=== PATIENT | male | born 1970 | race Hispanic/Latino ===

== ENCOUNTER 2016-12-24 05:17 | Emergency (ER) | payer SELFPAY | END 2016-12-24 05:18 | disposition left against medical advice (07) | LOC: ED 05:17 | DX: M79.89 Other specified soft tissue disorders (principal); Z53.21 Procedure and treatment not carried out due to patient leaving prior to being seen by health care provider ==

== ENCOUNTER 2018-02-06 04:54 | Emergency (ER) | payer SELFPAY | END 2018-02-06 05:30 | disposition left against medical advice (07) | LOC: ED 04:54 | DX: F10.129 Alcohol abuse with intoxication, unspecified (principal); Z53.21 Procedure and treatment not carried out due to patient leaving prior to being seen by health care provider ==

== ENCOUNTER 2018-02-06 08:40 | Emergency (ER) | payer OTHER ==
[2018-02-06 09:14] VITALS: BP 113/80
[2018-02-06] MEDS ORDERED: ATROVENT IH ONE (09:40)
[2018-02-06] MEDS ORDERED: PROVENTIL IH ONE (09:40)
[2018-02-06] MEDS ORDERED: SOLU-Medrol IV ONE (09:41)
--- NOTE | 2018-02-06 09:42 | XRay Report ---
ROUTINE CHEST, TWO VIEWS: HISTORY: shortness of breath. The trachea, heart, mediastinal contour, lung franks and bony thorax are unremarkable. IMPRESSION: Unremarkable chest x-ray.
--- NOTE | 2018-02-06 09:44 | Emergency Department Report ---
Chief Complaint: Dyspnea/Respdistress Stated Complaint: SOB/DIZZY Time Seen by Provider: 02/06/18 09:33 - HPI History of Present Illness: 47-year-old male presents via EMS from home with complaint of shortness of breath, coughing and wheezing. This been going on for him for " the past year" the patient says that he came in today because "I couldn't breathe." He denies any chest pain, fever, nausea, vomiting, back pain. He has a past medical history of asthma and is a cigarette smoker. He has not taken anything for his symptoms. Presentation. He does not have a primary care physician. No recent travel or sick contacts at home. No lower extremity swelling. - ROS Review of Systems: Positive for shortness of breath, coughing, wheezing Negative for chest pain, back pain, nausea, vomiting, fever - Exam Vital Signs: Vital Signs 02/06/18 09:10 Temperature 97.5 F L Pulse Rate 64 Respiratory 20 Rate Blood Pressure 113/80 O2 Sat by Pulse 97 Oximetry Physical Exam: Patient appears fatigued but is arousable. Heart sounds are normal to auscultation. Mild to moderate wheezing throughout the chest. No cough heard during examination thus far. No lower extremity swelling. MSE screening note: Focused history and physical exam performed. Due to findings the following was ordered: We have ordered a CBC, BMP, troponin, blood gas, chest x-ray and EKG. The EKG has been done and does not show any ST elevation HI or dysrhythmia. I have ordered breathing treatments for the patient, an IV to be placed and the patient will receive Solu-Medrol. ED Disposition for MSE Condition: Stable Referrals: PRIMARY CARE [Primary Care Provider] - 3-5 Days
[2018-02-06 09:59] LABS: Basophils # (Auto) 0.1 K/mm3 (0.0-0.1); Basophils % (Auto) 0.9 % (0.0-1.8); Eosinophils # (Auto) 0.3 K/mm3 (0.0-0.4); Eosinophils % (Auto) 3.6 % (0.0-4.3); Hematocrit 42.4 % (35.5-45.6); Hemoglobin 14.2 gm/dl (11.8-15.2); Lymphocytes # (Auto) 2.1 K/mm3 (1.2-5.4); Lymphocytes % (Auto) 27.1 % (13.4-35.0); Mean Corpuscular HGB Conc 34 % (32-34); Mean Corpuscular Hemoglobin 30 pg (28-32); Mean Corpuscular Volume 90 fl (84-94); Monocytes # (Auto) 0.6 K/mm3 (0.0-0.8); Monocytes % (Auto) 7.6 % (0.0-7.3); Platelet Count 346 K/mm3 (140-440); Red Blood Count 4.72 M/mm3 (3.65-5.03); Red Cell Distribution Width 15.3 % (13.2-15.2)
[2018-02-06 10:31] LABS: BUN/Creatinine Ratio 13; Blood Urea Nitrogen 14 mg/dL (9-20); Calcium 9.3 mg/dL (8.4-10.2); Hemolysis Index 7
--- NOTE | 2018-02-06 12:01 | Emergency Department Report ---
ED Asthma HPI - General Chief Complaint: Dyspnea/Respdistress Stated Complaint: SOB/DIZZY Time Seen by Provider: 02/06/18 09:33 Source: patient Mode of arrival: Ambulatory Limitations: No Limitations - History of Present Illness Initial Comments: This is a 47-year-old male nontoxic, well nourished in appearance, no acute signs of distress presents to the ED with c/o of shortness of breathe, cough, and wheezing x1 day. Patient stated she is out of her albuterol inhaler 1 month. Patient stated cough is nonproductive and dry. Patient denies any sick contact. Patient denies any recent travels, long car, recent hospital stays. Patient denies any calf pain or calf tenderness. Patient denies any chest pain , short of breath, fever, chills, nausea, vomiting, hemoptysis, numbness, tingling, headache or stiff neck. Stated allergies to PCN. Complaint: shortness of breath, wheezing, other (cough) -: days(s) (1) Asthma History: childhood onset Severity: mild Context: none known Associated Symptoms: dry cough - Related Data Current Asthma Therapy: none Previous Rx's Medication Instructions Recorded Last Taken Type ALBUTEROL Inhaler(NF) [VENTOLIN 2 puff IH Q4-6H PRN #1 inha 02/06/18 Unknown Rx Inhaler(NF)] Prednisone [predniSONE 10 mg 10 mg PO .TAPER #1 tab.ds.pk 02/06/18 Unknown Rx (6-Day Pack, 21 Tabs)] Allergies Allergy/AdvReac Type Severity Reaction Status Date / Time Penicillins Allergy Angioedema Verified 02/06/18 09:10 ED Review of Systems ROS: Stated complaint: SOB/DIZZY Other details as noted in HPI Constitutional: denies: chills, fever Eyes: denies: eye pain, eye discharge, vision change ENT: denies: ear pain, throat pain Respiratory: cough, shortness of breath, wheezing Cardiovascular: denies: chest pain, palpitations Endocrine: no symptoms reported Gastrointestinal: denies: abdominal pain, nausea, diarrhea Genitourinary: denies: urgency, dysuria Musculoskeletal: denies: back pain, joint swelling, arthralgia Skin: denies: rash, lesions Neurological: denies: headache, weakness, paresthesias Psychiatric: denies: anxiety, depression Hematological/Lymphatic: denies: easy bleeding, easy bruising ED Past Medical Hx - Past Medical History Previous Medical History?: Yes Hx Asthma: Yes - Surgical History Past Surgical History?: No - Social History Smoking Status: Current Every Day Smoker Substance Use Type: None - Medications Home Medications: Home Medications Medication Instructions Recorded Confirmed Last Taken Type ALBUTEROL Inhaler(NF) [VENTOLIN 2 puff IH Q4-6H PRN #1 inha 02/06/18 Unknown Rx Inhaler(NF)] Prednisone [predniSONE 10 mg 10 mg PO .TAPER #1 tab.ds.pk 02/06/18 Unknown Rx (6-Day Pack, 21 Tabs)] ED Physical Exam - General Limitations: No Limitations General appearance: alert, in no apparent distress - Head Head exam: Present: atraumatic, normocephalic - Eye Eye exam: Present: normal appearance Pupils: Present: normal accommodation - ENT ENT exam: Present: normal exam, mucous membranes moist - Neck Neck exam: Present: normal inspection, full ROM. Absent: tenderness, meningismus - Respiratory Respiratory exam: Present: normal lung sounds bilaterally, wheezes (bilateral upper and lower lobes). Absent: respiratory distress, rales, rhonchi, stridor, chest wall tenderness, accessory muscle use, decreased breath sounds, prolonged expiratory - Cardiovascular Cardiovascular Exam: Present: regular rate, normal rhythm, normal heart sounds. Absent: bradycardia, tachycardia, irregular rhythm, systolic murmur, diastolic murmur, rubs, gallop - GI/Abdominal GI/Abdominal exam: Present: soft, normal bowel sounds. Absent: distended, tenderness, guarding, rebound, rigid, diminished bowel sounds - Rectal Rectal exam: Present: deferred - Extremities Exam Extremities exam: Present: normal inspection, full ROM, normal capillary refill - Back Exam Back exam: Present: normal inspection, full ROM - Neurological Exam Neurological exam: Present: alert, oriented X3, normal gait - Psychiatric Psychiatric exam: Present: normal affect, normal mood - Skin Skin exam: Present: warm, dry, intact, normal color. Absent: rash ED Course Vital Signs 02/06/18 09:10 Temperature 97.5 F L Pulse Rate 64 Respiratory 20 Rate Blood Pressure 113/80 O2 Sat by Pulse 97 Oximetry - Reevaluation(s) Reevaluation #1: 02/06/18 11:59 Patient is speaking in full sentences with no signs of distress noted. - Consultations Consultation #1: 02/06/18 11:59 Patient has been consulted with Todd Oliver about patient history, physical exam, and labs and examined and screened patient and agrees to ED plan of care and discharge plan of care. ED Medical Decision Making - Lab Data Result diagrams: 02/06/18 09:37 02/06/18 09:37 - EKG Data When compared to previous EKG there are: no significant change Interpretation: no acute changes, normal EKG, other (No ST abnormalitis) 02/06/18 12:[address] Haile - Medical Decision Making This is a 47-year-old male that presents with asthma exacerbation. Patient is stable and was examined by me. Chest x-ray has been obtained and dictated by the radiologist within normal limits. Labs unremarkable. Patient is notified of the x-ray report with no questions noted by the patient. Patient did receive breathing treatment and steroids in the ED which patient the symptoms has resolved and subsided. Posttreatment and there is no wheezing upon auscultation. Patient is discharged with albuterol and prednisone. Patient was referred to Follow-up with a primary care doctor in 3-5 days or if symptoms worsen and continue return to emergency room as soon as possible. At time of discharge, the patient does not seem toxic or ill in appearance. No acute signs of distress noted. Patient agrees to discharge treatment plan of care. No further questions noted by the patient. This chart is dictated with using [employer] Critical care attestation.: If time is entered above; I have spent that time in minutes in the direct care of this critically ill patient, excluding procedure time. ED Disposition Clinical Impression: Asthma exacerbation Qualifiers: Asthma severity: mild Asthma persistence: intermittent Qualified Code(s): J45.21 - Mild intermittent asthma with (acute) exacerbation Disposition: DC-01 TO HOME OR SELFCARE Is pt being admited?: No Does the pt Need Aspirin: No Condition: Stable Instructions: Asthma (ED) Additional Instructions: Follow-up with a primary care doctor in 3-5 days or if symptoms worsen and continue return to emergency room as soon as possible. Prescriptions: ALBUTEROL Inhaler(NF) [VENTOLIN Inhaler(NF)] 2 puff IH Q4-6H PRN #1 inha PRN Reason: Wheezing Prednisone [predniSONE 10 mg (6-Day Pack, 21 Tabs)] 10 mg PO .TAPER #1 tab.ds.pk Referrals: PRIMARY CARE, [Primary Care Provider] - 3-5 Days ANTONIO COLBERT MD [Staff Physician] - 3-5 Days [facility] [place] - 3-5 Days [facility] [Outside] - 3-5 Days
== END 2018-02-06 12:24 | disposition home or self-care (01) ==
LOC: ED 08:40
DX: J45.21 Mild intermittent asthma with (acute) exacerbation (principal); F17.200 Nicotine dependence, unspecified, uncomplicated; Z88.0 Allergy status to penicillin
CPT/HCPCS: 36415; 71046; 80048; 82803; 84484; 85025; 93005; 93010; 94640; 96374; 99284; G0480; J2930; 80320